=== PATIENT | male | born 1975 | race Caucasian/White ===

== ENCOUNTER 2022-02-14 16:31 | Emergency (ER) | payer OTHER, BC ==
[2022-02-14] MEDS ORDERED: Sodium Chloride 0.9% 10 ML Syringe FLUSH PRN (16:42)
[2022-02-14 16:58] LABS: ESTIMATED GFR 84 mL/min (>60)
[2022-02-14] MEDS ORDERED: Diphtheria,Pertussis(Acell),Tetanus Vaccine 0.5 ML Syringe IM ONE (17:12)
[2022-02-14] MEDS ORDERED: Bacitracin Oint 1 GM U/D Packet TOP ONE (17:25)
== END 2022-02-14 18:45 | disposition home or self-care (01) ==
LOC: JP.ED 16:31
DX: S52.532A Colles' fracture of left radius, initial encounter for closed fracture (principal); S62.355A Nondisplaced fracture of shaft of fourth metacarpal bone, left hand, initial encounter for closed fracture; S62.351A Nondisplaced fracture of shaft of second metacarpal bone, left hand, initial encounter for closed fracture; S20.211A Contusion of right front wall of thorax, initial encounter; S00.81XA Abrasion of other part of head, initial encounter; Z79.82 Long term (current) use of aspirin; V29.9XXA Motorcycle rider (driver) (passenger) injured in unspecified traffic accident, initial encounter; Y92.410 Unspecified street and highway as the place of occurrence of the external cause
CPT/HCPCS: 36415; 70450; 71045; 71045-26; 73110-26-LT; 73110-LT; 73130-26-LT; 73130-LT; 80048; 80307; 85025; 90471; 90715; 99285-25